=== PATIENT | female | born 1970 | race Caucasian/White ===

== ENCOUNTER 2024-06-29 17:23 | Emergency (ER) | payer MEDICAID ==
[~2024-06-29] VITALS: Ht 175.3 cm; Wt 98.0 kg
[2024-06-29 17:28] VITALS: BP 178/101; PULSE 132; RESP 18; TEMP 98; O2SAT 98
[2024-06-29] MEDS ORDERED: CLONIDINE 0.2MG TABLET PO ONE (17:45)
[2024-06-29] MEDS: FLUORESCEIN SODIUM 1MG/STRIP BOTHEYE ONE (17:45)
[2024-06-29] MEDS: TETRACAINE 0.5% OPHTH DROPS 4ML BOTHEYE ONE (17:45)
[2024-06-29] MEDS: CLONIDINE 0.1MG TABLET PO NR (17:54)
[2024-06-29] MEDS ORDERED: PERM60CR4 TP (23:56)
[2024-06-29] MEDS ORDERED: CLOT45CR62 TOP (23:56)
== END 2024-06-30 03:20 | disposition home or self-care (01) ==
LOC: ER 17:23
DX: H57.12 Ocular pain, left eye (principal); B86 Scabies; B36.9 Superficial mycosis, unspecified; F20.9 Schizophrenia, unspecified; I10 Essential (primary) hypertension; F31.9 Bipolar disorder, unspecified; G89.29 Other chronic pain; R07.9 Chest pain, unspecified; F15.90 Other stimulant use, unspecified, uncomplicated
CPT/HCPCS: 99283